=== PATIENT | male | born 1960 | race Caucasian/White ===

== ENCOUNTER 2020-07-19 16:48 | Emergency (ER) | payer MEDICAID ==
[~2020-07-19] VITALS: Ht 157.5 cm; Wt 76.7 kg
[2020-07-19 16:59] VITALS: BP 136/81
--- NOTE | 2020-07-19 17:02 | NUR ---
Patient ambulated to lobby accompanied by daughter
--- NOTE | 2020-07-19 17:35 | NUR ---
59 y/o male from home c/o right middle finger pain s/p getting finger crushed by wood palate. Noticable laceration to finger, bleeding controlled. 01/09 pain. VSS
[2020-07-19] MEDS ORDERED: BACITRACIN OINT 500 UNITS/GM PKT TP ONE (17:50)
[2020-07-19] MEDS ORDERED: LIDOCAINE MPF 1% 10 MG/ML VIAL INJ ONE (17:50)
[2020-07-19] MEDS ORDERED: KETOROLAC 60 MG/2 ML VIAL IM ONE (18:10)
--- NOTE | 2020-07-19 18:37 | NUR ---
APPLIED BACITRACIN TO PT LAC, DRESSED WITH NON-ADHERENT GUAZE PAD AND WRAPPED WITH 2" GUAZE ROLL. PT FINGER PLACED IN FINGER SPLINT, PA AND RN NOTIFIED
[2020-07-19 18:40] VITALS: BP 136/81
--- NOTE | 2020-07-19 18:40 | NUR ---
Patient discharged with v/s stable. Written and verbal after care instructions given and explained. Patient alert, oriented and verbalized understanding of instructions. Ambulatory with steady gait. All questions addressed prior to discharge. ID band removed. Patient advised to follow up with PMD. Rx of Naprosyn 500mg and Keflex 500mg given. Patient educated on indication of medication including possible reaction and side effects. Opportunity to ask questions provided and answered.
== END 2020-07-19 18:40 | disposition home or self-care (01) ==
LOC: MED 16:48
DX: S62.662A Nondisplaced fracture of distal phalanx of right middle finger, initial encounter for closed fracture (principal); X58.XXXA Exposure to other specified factors, initial encounter; Y93.89 Activity, other specified; Y92.89 Other specified places as the place of occurrence of the external cause; Y99.0 Civilian activity done for income or pay
CPT/HCPCS: 12001; 29130; 73140; 96372; 99283; J1885; J2001